=== PATIENT | female | born 1985 | race Two or more races ===

== ENCOUNTER 2019-06-30 18:04 | Emergency (ER) | payer OTHER ==
[~2019-06-30] VITALS: Ht 165.1 cm; Wt 81.6 kg
[2019-06-30 18:30] VITALS: BP 140/88
== END 2019-06-30 19:44 | disposition left against medical advice (07) ==
LOC: EDBD 18:04 → ER 18:06
DX: O9A.212 Injury, poisoning and certain other consequences of external causes complicating pregnancy, second trimester (principal); S30.1XXA Contusion of abdominal wall, initial encounter; Z53.29 Procedure and treatment not carried out because of patient's decision for other reasons; V48.6XXA Car passenger injured in noncollision transport accident in traffic accident, initial encounter; Y93.89 Activity, other specified; Y99.8 Other external cause status; Y92.89 Other specified places as the place of occurrence of the external cause